=== PATIENT | male | born 1965 | race Two or more races ===

== ENCOUNTER 2024-11-10 07:00 | Emergency (ER) | payer OTHER ==
[~2024-11-10] VITALS: Ht 162.6 cm; Wt 117.9 kg
[2024-11-10] MEDS ORDERED: TETANUS & DIPHTHERIA TOX,ADULT 0.5 ML VIAL IM STA (08:22)
[2024-11-10] MEDS ORDERED: CEFAZOLIN SODIUM 1,000 MG VIAL IM STA (08:23)
[2024-11-10] MEDS ORDERED: CEFAZOLIN SODIUM 1,000 MG VIAL ONE (08:26)
[2024-11-10] MEDS ORDERED: DIPHTH,PERTUSS(ACELL),TET VAC 0.5 ML SYRINGE IM ONE (08:27)
[2024-11-10] MEDS ORDERED: LIDOCAINE HCL 1% 10ML VIAL ONE (08:27)
== END 2024-11-10 09:12 | disposition home or self-care (01) ==
LOC: ER 08:00
DX: S00.81XA Abrasion of other part of head, initial encounter (principal); X83.8XXA Intentional self-harm by other specified means, initial encounter; Y93.89 Activity, other specified; Y92.89 Other specified places as the place of occurrence of the external cause; Y99.9 Unspecified external cause status